=== PATIENT | female | born 1935 | race Asian ===

== ENCOUNTER 2017-04-08 10:32 | Emergency (ER) | payer MEDICARE, MEDICAID ==
[~2017-04-08] VITALS: Ht 152.4 cm; Wt 50.0 kg
[~2017-04-08 10:32] MED LIST: ATEN50TA PO; CALC500T62 PO; HYDR25TA PO; LISI2.5T2 PO; LOVA20TA3 PO
[2017-04-08] MEDS ORDERED: METO-323 PO (10:45)
[2017-04-08] MEDS ORDERED: LOSA25TA21 PO (10:45)
[2017-04-08] MEDS ORDERED: AMLO2.5T PO (10:45)
[2017-04-08] MEDS ORDERED: ALLO100T PO (10:45)
[2017-04-08 10:56] LABS: BASOPHILS % (AUTO) 0.1 % (0.0-2.0); EOSINOPHILS % (AUTO) 0 % (1.0-6.0); HEMOGLOBIN 10.7 g/dL (12.0-16.0); LYMPHOCYTES # (AUTO) 0.7 K/uL (1.0-4.8); LYMPHOCYTES % (AUTO) 5.7 % (22.0-44.0); MEAN CORPUSCULAR HEMOGLOBIN 30.7 pg (26.0-34.0); MEAN CORPUSCULAR HGB CONC 33.4 G/dL (31.0-37.0); MEAN CORPUSCULAR VOLUME 92 fL (80-100); MONOCYTES # (AUTO) 0.1 K/uL (0.1-1.0); PLATELET COUNT (AUTO) 224 K/uL (150-450); RED BLOOD CELL COUNT(AUTO) 3.48 MIL/uL (4.00-5.20); RED CELL DISTRIBUTION WIDTH 14.6 % (11.5-14.5); WHITE BLOOD COUNT (AUTO) 11.8 K/uL (4.5-11.0)
[2017-04-08 11:04] LABS: CALCIUM, TOTAL 9.4 mg/dL (8.8-10.5); CREATININE 1.08 mg/dL (0.60-1.30)
[2017-04-08 11:06] LABS: NEUTROPHILS % (AUTO) 93.2 % (40.0-70.0)
[2017-04-08 11:10] LABS: ALBUMIN 3.4 g/dL (3.4-5.0); BILIRUBIN,TOTAL 0.5 mg/dL (0.1-1.0); TOTAL PROTEIN, SERUM 7.3 g/dL (6.4-8.2)
[2017-04-08 12:08] LABS: APPEARANCE,URINE CLEAR (CLEAR); GLUCOSE, URINE (UA) NEGATIVE (NEGATIVE); KETONES,URINE NEGATIVE (NEGATIVE); LEUKOCYTE ESTERASE ,URINE NEGATIVE (NEGATIVE); OCCULT BLOOD,URINE LARGE (NEGATIVE); PH,URINE 5.5 (5.0-8.0); PROTEIN,URINE NEGATIVE (NEGATIVE)
[2017-04-08 12:30] LABS: ADD UA MICROSCOPIC YES
[2017-04-08 12:32] LABS: RBC,URINE 26-50 /HPF (0-2); SQUAMOUS EPITHELIAL CELL,UR None Seen /LPF (None Seen); WBC,URINE None Seen /HPF (0-5)
[2017-04-08] MEDS ORDERED: SODIUM CHLORIDE 0.9% 1,000 ML IV ONE (13:45)
[2017-04-08] MEDS ORDERED: BARIUM SULFATE 0.1% SUSPENSION 450 ML BOTTLE PO ONE (13:45)
[2017-04-08] MEDS ORDERED: ONDANSETRON HCL 4 MG/2 ML VIAL IVP ONE (13:45)
[2017-04-08] MEDS ORDERED: HYDROmorphone 2 MG/ML SYRINGE IVP ONE (13:45)
[2017-04-08] MEDS ORDERED: CefTRIAXone 1 GM/DEXTROSE 50 ML IV ONE (17:00)
[2017-04-08 17:37] VITALS: BP 131/58
== END 2017-04-08 17:42 | disposition home or self-care (01) ==
LOC: EMS 10:35
DX: K52.9 Noninfective gastroenteritis and colitis, unspecified (principal); R31.29 Other microscopic hematuria; I10 Essential (primary) hypertension; E78.00 Pure hypercholesterolemia, unspecified; Z79.899 Other long term (current) drug therapy; Z90.49 Acquired absence of other specified parts of digestive tract
CPT/HCPCS: 36415; 74176; 80053; 81001; 83690; 84484; 85025; 93005; 96361; 96365; 96375; 99285; J0696; J1170; J2405; J7030

== ENCOUNTER 2021-11-15 10:32 | Emergency (ER) | payer MEDICAID, MEDICARE ==
[~2021-11-15] VITALS: Ht 152.4 cm; Wt 52.3 kg
[~2021-11-15 10:32] MED LIST changes: +ALLO100T2 PO; +AMLO2.5T96 PO; +ATEN-72 PO; -ATEN50TA PO; -CALC500T62 PO; -HYDR25TA PO; +LISI2.5T13 PO; -LISI2.5T2 PO; +LOSA-381 PO; -LOVA20TA3 PO; +METO25XL PO
[2021-11-15 10:42] VITALS: BP 135/62
[2021-11-15] MEDS ORDERED: PredniSONE 20 MG TABLET PO ONE (11:30)
[2021-11-15] MEDS ORDERED: IBUPROFEN 600 MG TABLET PO ONE (11:30)
== END 2021-11-15 12:06 | disposition home or self-care (01) ==
LOC: EMS 10:32
DX: M10.9 Gout, unspecified (principal); I10 Essential (primary) hypertension; E78.00 Pure hypercholesterolemia, unspecified; Z79.899 Other long term (current) drug therapy
CPT/HCPCS: 99283; J7512; 29530